=== PATIENT | male | born 1980 | race Caucasian/White ===

== ENCOUNTER → 2023-12-20 07:05 | Outpatient (REF) | payer OTHER, SELFPAY ==
[2023-12-20] VITALS (7 sets, daily range): BP systolic 73–167; BP diastolic 97–110
== END ==
LOC: RADI 07:05
PROVIDERS: ATTENDING PHYSICIAN Physician Assistant Medical
DX: C37 Malignant neoplasm of thymus (principal)
CPT/HCPCS: 88173; 88305; 32408; 88333; 88334; 88341; 88342; 99152

== ENCOUNTER → 2024-09-18 15:28 | Outpatient (REF) | payer OTHER, SELFPAY | LOC: RAD 15:28 | PROVIDERS: ATTENDING PHYSICIAN Physician Assistant Medical | DX: J40 Bronchitis, not specified as acute or chronic (principal) | CPT/HCPCS: 71046 ==

== ENCOUNTER → 2024-10-24 12:40 | Outpatient (REF) | payer BC, SELFPAY | LOC: RAD 12:40 | PROVIDERS: ATTENDING PHYSICIAN Physician Assistant Medical | DX: J18.9 Pneumonia, unspecified organism (principal) | CPT/HCPCS: 71046 ==